=== PATIENT | female | born 1930 | race Caucasian/White ===

== ENCOUNTER → 2017-09-01 | Outpatient (CLI) | payer MEDICARE ==
--- NOTE | 2017-09-02 09:21 | RAD ---
EXAM DESCRIPTION: Hip,Right 2 Views CLINICAL HISTORY: 86 years, Female, PAIN COMPARISON: None TECHNIQUE: AP and frog leg lateral views of the hip FINDINGS: 2 views of the right hip reveal no fracture or dislocation. Severe loss of joint space is seen with subchondral cyst formation in the acetabular roof and head of the femur. Partial flattening of the femoral head is noted. There is spurring at the lateral joint line. Findings are more consistent with chronic degenerative osteoarthrosis than avascular necrosis. No fracture of the right hemipelvis or right hemisacrum. IMPRESSION: Advanced degenerative osteoarthrosis of the right hip. Electronically signed by: Matthew Espinoza MD 09/02/2017 9:19 AM CDT
--- NOTE | 2017-09-02 09:23 | RAD ---
EXAM DESCRIPTION: Pelvis CLINICAL HISTORY: 86 years Female, PAIN COMPARISON: None. TECHNIQUE: Single frontal view of the pelvis and hips. FINDINGS: Arthritic changes are seen in the right hip. Pelvic ring appears intact. Degenerative changes are seen in the lower L-spine and in the sacrum. Degenerative changes are seen at the SI joints. IMPRESSION: Advanced degenerative osteoarthrosis of the right hip. Electronically signed by: Matthew Espinoza MD 09/02/2017 9:21 AM CDT
== END ==
LOC: RAD 14:23
PROVIDERS: ATTEND Orthopaedic Surgery
DX: M25.551 Pain in right hip (principal)